=== PATIENT | female | born 1990 | race Two or more races ===

== ENCOUNTER 2016-10-13 13:20 | Emergency (ER) | payer OTHER ==
[2016-10-13 13:24] VITALS: BP 117/63; PULSE 83; TEMP 98; BMI 26.5
--- NOTE | 2016-10-13 14:31 | PDOC ---
History of Present Illness - History of Present Illness Initial Comments: 10/13/16 14:37 The patient is a 26 year old female, with a significant past medical history of appendectomy, who presents to the emergency department with chills, periumbilical pain, and diarrhea s/p eating a tuna sandwich at a new restaurant 4 days ago. She reports her abdominal pain as intermittent cramping around her bellybutton which was a 3/10 in severity after eating the tuna sandwich. She reports developing water, nonbloody diarrhea shortly after the onset of her abdominal cramping. She reports about 15 episodes of watery stool since the onset. She states she has been able to eat and drink water without reproducing diarrhea. She also reports experiencing some shortness of breath and palpitations when she is experiencing the abdominal cramps and during her bowel movement. She also states she feels as if her heart skips beats. She also admits to drinking six beers over the weekend She denies chest pain, headache and dizziness. She denies fever, chills, nausea , vomit, and constipation. She denies dysuria, frequency, urgency and hematuria. Allergies: NKDA Past surgical history: appendectomy Social history: occasional alcohol consumption <Veronica Lee - Last Filed: 10/13/16 15:25> - General History Source: Patient Exam Limitations: No Limitations <Nishi Lopez - Last Filed: 10/13/16 19:28> - General Chief Complaint: Diarrhea Stated Complaint: PAIN Time Seen by Provider: 10/13/16 13:52 Past History <Veronica Lee - Last Filed: 10/13/16 15:25> - Past Medical History Other medical history: NONE - Surgical History Appendectomy: Yes - Psycho/Social/Smoking Cessation Hx Anxiety: No Suicidal Ideation: No Smoking History: Never smoked Have you smoked in the past 12 months: No Number of Cigarettes Smoked Daily: 0 Information on smoking cessation initiated: No Hx Alcohol Use: No Drug/Substance Use Hx: No Substance Use Type: None <Nishi Lopez - Last Filed: 10/13/16 19:28> - Past Medical History Allergies/Adverse Reactions: Allergies Allergy/AdvReac Type Severity Reaction Status Date / Time No Known Allergies Allergy Verified 10/13/16 13:21 Home Medications: Ambulatory Orders Ciprofloxacin [Cipro -] 500 mg PO Q12H #10 tablet 10/13/16 Metronidazole [Flagyl -] 500 mg PO TID #15 tablet 10/13/16 Review of Systems - Review of Systems Able to Perform ROS?: Yes Comments:: 10/13/16 14:37 CONSTITUTIONAL: (+) chills, Absent: fever, no fatigue EYES: Absent: visual changes ENT: Absent: ear pain, no sore throat CARDIOVASCULAR: (+) palpitations. Absent: chest pain, RESPIRATORY: Absent: cough, no SOB GASTROINTESTINAL: (+) diarrhea and periumbilical cramping. Absent: abdominal pain, no nausea, no vomiting, no constipation GENITOURINARY: Absent: dysuria, no frequency, no hematuria MUSCULOSKELETAL: Absent: back pain, no arthralgia, no myalgia SKIN: Absent: rash NEURO: Absent: headache <Veronica Lee - Last Filed: 10/13/16 15:25> *Physical Exam - Vital Signs Last Vital Signs Temp Pulse Resp BP Pulse Ox 98.0 F 83 18 117/63 100 10/13/16 13:22 10/13/16 13:22 10/13/16 13:22 10/13/16 13:22 10/13/16 13:22 - Physical Exam Comments: 10/13/16 14:39 GENERAL: The patient is in no acute distress. HEAD: Normal with no signs of trauma. EYES: PERRLA, EOMI, sclera anicteric, conjunctiva clear. ENT: Ears normal, nares patent, oropharynx clear without exudates. Moist mucous membranes. NECK: Normal range of motion, supple without lymphadenopathy, JVD, or masses. LUNGS: Breath sounds equal, clear to auscultation bilaterally. No wheezes, and no crackles. HEART:Regular rate and rhythm, normal S1 and S2 without murmur, rub or gallop. ABDOMEN: (+) tenderness to palpation to periumbilicus. Soft, normoactive bowel sounds. No guarding, no rebound. No masses palpable. EXTREMITIES: Normal range of motion, no edema. No clubbing or cyanosis. No erythema, or tenderness. NEUROLOGICAL: Cranial nerves II through XII grossly intact. Normal speech. No focal neurological deficits. MUSCULOSKELETAL: Back non-tender to palpation, no CVA tenderness SKIN: Warm, Dry, normal turgor, no rashes or lesions noted. <MonishabobVeronica - Last Filed: 10/13/16 15:25> - Vital Signs Last Vital Signs Temp Pulse Resp BP Pulse Ox 98.0 F 83 18 117/63 100 10/13/16 13:22 10/13/16 13:22 10/13/16 13:22 10/13/16 13:22 10/13/16 13:22 <Nishi Lopez - Last Filed: 10/13/16 19:28> ED Treatment Course - LABORATORY CBC & Chemistry Diagram: 10/13/16 15:35 10/13/16 15:35 <Nishi Lopez - Last Filed: 10/13/16 19:28> Medical Decision Making - Medical Decision Making 10/13/16 14:31 A portion of this note was documented by scribe services under my direction. I have reviewed the details of the note, within reason, and agree with the documentation with the following case summary and management plan written by me. Nursing documentation reviewed and incorporated into medical decision making 10/13/16 19:17 This patient is a 26-year-old female with no significant past medical history presents emergency department with a complaint of diarrhea Patient's last travel was a possibly 3 weeks ago to the [place]. Patient denies recent antibiotic use. Patient states she's had multiple episodes of watery brown stools. No vomiting. No fever or chills. She also has noted some lower abdominal pain and tenderness 10/13/16 19:18 Laboratory Tests 10/13/16 10/13/16 10/13/16 15:35 15:35 15:35 WBC 7.7 Hgb 14.7 Hct 43.7 Plt Count 167 BUN 11 Creatinine 0.6 Serum , Qual Negative 10/13/16 19:18 CT of the abdomen and pelvis: Mild concentric wall filling thickening involving the D ileum including the terminal ileum. No. The anterior neck edema or fluid fibrillation. Small amount of free fluid present in the pelvic cul-de-sac. No pneumoperitoneum, bowel obstruction, abscess. Spleen enlargement. Will discharge this patient home on Cipro and Flagyl. Last patient follow up with GI, and her primary care physician. Will ask patient to return to emergency department for fevers and chills Clinical impression: Enteritis <Nishi Lopez - Last Filed: 10/13/16 19:28> *DC/Admit/Observation/Transfer - Attestations Scribe Attestion: 10/13/16 14:39 Documentation prepared by Veronica Lee, acting as hospital medical biller for Nishi Lopez MD <Veronica Lee - Last Filed: 10/13/16 15:25> - Discharge Dispostion Admit: No <Nishi Lopez - Last Filed: 10/13/16 19:28> Diagnosis at time of Disposition: Enteritis - Discharge Dispostion Disposition: HOME Condition at time of disposition: Stable - Referrals Referrals: Júnior Babin MD [Staff Physician] - Fermin Cortez MD [Staff Physician] - - Patient Instructions Printed Discharge Instructions: Diarrhea Additional Instructions: Thank you for coming into the ER today. Please take medications as prescribed. Please review results of your CT scan. You must follow up with your primary care physician within 2-3 days. You must also follow up with a dictating machine mechanic (several referrals were given to close) Please return to emergency department for fevers, chills, inability to tolerate foods or liquids. - Post Discharge Activity Work/School Note: Back to Work
[2016-10-13] MEDS ORDERED: SODIUM CHLORIDE 1,000 ML IV STA (14:36)
[2016-10-13 15:41] LABS: BASOPHIL 0.6 % (0-2.0); EOSINOPHIL 1.2 % (0-4.5); MCHC 33.5 g/dl (32.0-36.0); MEAN CELL VOLUME 83.5 fl (80-96); MEAN PLT VOLUME 9.6 fl (7.5-11.1); NEUTROPHILS 77.1 % (42.8-82.8); PLATELET COUNT 167 K/MM3 (134-434); RDW 14.2 % (11.6-15.6); WHITE BLOOD COUNT 7.7 K/mm3 (4.0-10.0)
[2016-10-13] MEDS ORDERED: HYOSCYAMINE SULFATE 0.125 MG *ODT PO ONE (15:52)
[2016-10-13 15:58] LABS: ALBUMIN 3.7 g/dl (3.4-5.0); ALK PHOS 103 U/L (45-117); ANION GAP 8 (8-16); BILIRUBIN,TOTAL 0.3 mg/dL (0.2-1.0); CO2 27 mmol/L (21-32); CREATININE 0.6 mg/dL (0.55-1.02); GLUCOSE,RANDOM 97 mg/dL (74-106); SGOT/AST 14 U/L (15-37); SGPT/ALT 23 U/L (12-78); TOT PROT 7.4 g/dl (6.4-8.2)
[2016-10-13 19:53] LABS: URINE APPEARANCE CLEAR; URINE BILIRUBIN NEGATIVE (NEGATIVE); URINE BLOOD 3+ (NEGATIVE); URINE COLOR STRAW; URINE GLUCOSE (UA) NEGATIVE (NEGATIVE); URINE KETONE NEGATIVE (NEGATIVE); URINE LEUK ESTERASE NEGATIVE (NEGATIVE); URINE NITRITE NEGATIVE (NEGATIVE); URINE PROTEIN NEGATIVE (NEGATIVE); URINE UROBILINOGEN NEGATIVE mg/dL (0.2-1.0)
[2016-10-13 20:44] LABS: URINE RBC 8 /hpf (0-3); URINE WBC <1 /hpf (3-5)
== END 2016-10-13 20:07 | disposition home or self-care (01) ==
LOC: JER 13:20
PROC: 3E0337Z Introduction of Electrolytic and Water Balance Substance into Peripheral Vein, Percutaneous Approach (ICD-10-PCS; principal; 2016-10-13)
DX: K52.9 Noninfective gastroenteritis and colitis, unspecified (principal)
CPT/HCPCS: 36415; 74177-TC; 80053; 81003; 81015; 84703; 85025; 87086; 99282-25